=== PATIENT | male | born 1950 | race Caucasian/White ===

== ENCOUNTER → 2018-03-17 | Outpatient (CLI) | payer MEDICARE ==
[2018-03-17 16:12] LABS: BILIRUBIN,TOTAL 2.2 mg/dL (0.0-1.0); CALCIUM 8.5 mg/dL (8.4-10.2); CHOLESTEROL RISK RATIO 3.8; CREATININE, serum 1.09 mg/dL (0.66-1.25); POTASSIUM 3.9 mmol/L (3.4-5.0); TOTAL PROTEIN 7.2 gm/dL (6.4-8.2)
[2018-03-17 16:42] LABS: PSA-TOTAL 1.85 ng/mL (0-4)
== END ==
LOC: COL.LAB 08:58
PROVIDERS: Family Medicine
DX: Z12.5 Encounter for screening for malignant neoplasm of prostate (principal); Z13.220 Encounter for screening for lipoid disorders; Z86.19 Personal history of other infectious and parasitic diseases
CPT/HCPCS: G0103

== ENCOUNTER → 2019-04-27 | Outpatient (CLI) | payer MEDICARE, BC ==
[2019-04-27 21:00] LABS: BILIRUBIN,TOTAL 1.1 mg/dL (0.0-1.0); CALCIUM 8.8 mg/dL (8.4-10.2); CREATININE, serum 1.03 (0.66-1.25); POTASSIUM 5.1 mmol/L (3.4-5.0); TOTAL PROTEIN 6.9 gm/dL (6.4-8.2)
== END ==
LOC: ZCOL.LAB 16:49
PROVIDERS: Family Medicine
DX: Z12.5 Encounter for screening for malignant neoplasm of prostate (principal); R74.8 Abnormal levels of other serum enzymes

== ENCOUNTER → 2019-05-18 | Outpatient (CLI) | payer MEDICARE, BC | LOC: ZCOL.LAB 16:59 | DX: E87.5 Hyperkalemia (principal) ==

== ENCOUNTER → 2019-07-08 | Outpatient (CLI) | payer MEDICARE, BC | LOC: COL.VAS 08:57 | DX: G45.9 Transient cerebral ischemic attack, unspecified (principal) ==